=== PATIENT | female | born 1990 | race Caucasian/White ===

== ENCOUNTER 2019-04-27 13:19 | Emergency (ER) | payer MEDICAID ==
[~2019-04-27] VITALS: Ht 175.3 cm; Wt 102.8 kg
[2019-04-27 13:21] VITALS: BP 129/91
--- NOTE | 2019-04-27 14:24 | NUR ---
PT ARRIVES TO ED WITH C/O OF UMBILICAL PAIN WITH REDNESS AND DRAINAGE IN UMBILICUS. PT HAD MODERATE AMOUNT OF LINT IN UMBILICUS. PT REPORTS ITS TENDER TO PALPATION. PT HAS NO FEVER AND VSS. PT RESTING IN BED AND AWAITING US.
--- NOTE | 2019-04-27 15:10 | NUR ---
Patient/Caregiver given discharge instructions and they have confirmed that they understand the instructions. Patient ambulatory with steady gait.
== END 2019-04-27 15:13 | disposition home or self-care (01) ==
LOC: ED 15:07
DX: L03.311 Cellulitis of abdominal wall (principal); Z90.49 Acquired absence of other specified parts of digestive tract
CPT/HCPCS: 99283